=== PATIENT | female | born 1980 | race Caucasian/White ===

== ENCOUNTER 2021-04-10 09:17 | Outpatient (CLI) | payer OTHER, SELFPAY ==
--- NOTE | ~2021-04-10 | MMUS_ITS ---
EXAMINATION: MM diagnostic jer[facility] BI w [facility], US breast RT limited HISTORY: Family history of breast cancer gene mutation and first degree relative, family history of b reast cancer in her mother TECHNIQUE: Craniocaudal, mediolateral, and mediolateral oblique 3-D tomosynthesis images of the breas ts were performed and synthetic 2-D images were generated. CAD analysis was submitted and interpreted . High resolution limited right breast ultrasound was performed. COMPARISON: No prior mammogram is currently available for comparison. BREAST PARENCHYMAL COMPOSITION: There are scattered areas of fibroglandular density. FINDINGS: MAMMOGRAPHIC FINDINGS: There is focal asymmetry in the anterior third of the lower right breast. No suspicious calcification or architectural distortion are identified. There is no evidence of suspicious mass, calcification, or architectural distortion in the left breast to suggest malignancy. ULTRASOUND: There is no evidence of focal abnormal solid or cystic mass in the vicinity of the mammographic findi ng in the right breast. IMPRESSION: 1. No mammographic or sonographic evidence of malignancy. 2. Recommend routine screening mammography in one year. If patient is a carrier of a genetic mutation or calculated to be high risk, supplemental screening would be indicated. BI-RADS Category 2: Benign finding(s). Reviewed, dictated and finalized at location A. SUPPORT ANALYST SUPERVISOR IMPRESSION: 1. No mammographic or sonographic evidence of malignancy. 2. Recommend routine screening mammography in one year. If patient is a carrier of a genetic mutation or calculated to be high risk, supplemental screening wo uld be indicated. BI-RADS Category 2: Benign finding(s).
== END 2021-04-10 09:18 ==
PROVIDERS: PCP Internal Medicine; Visit Provider Internal Medicine
DX: Z87.898 Personal history of other specified conditions (principal); Z84.81 Family history of carrier of genetic disease
CPT/HCPCS: 76642; 77062; 77066; G0279